=== PATIENT | male | born 1970 | race Caucasian/White ===

== ENCOUNTER 2017-05-18 05:31 | Emergency (ER) | payer BC ==
--- NOTE | 2017-05-18 05:38 | EDM.PDOC ---
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 Past medical history: As per history of present illness and as reviewed below otherwise noncontributory. Surgical history: As per history of present illness and as reviewed below otherwise noncontributory. Social history: No reported history of drug or alcohol abuse. Family history: As per history of present illness and as reviewed below otherwise noncontributory. Physical exam: HEENT: Atraumatic, normocephalic, pupils reactive, negative for conjunctival pallor or scleral icterus, mucous membranes moist, throat clear, neck supple, nontender, trachea midline. Lungs: Clear to auscultation, breath sounds equal bilaterally, chest nontender. Heart: S1S2, regular, negative for clicks, rubs, or JVD. Abdomen: Soft, nondistended, nontender. Negative for masses or hepatosplenomegaly. Negative for costovertebral tenderness. Pelvis: Stable nontender. Genitourinary: Deferred. Rectal: Deferred. Extremities: Left calf is some mild tenderness no cords CMS neurovascular is unremarkable. No significant edema Neuro: Awake, alert, oriented. Cranial nerves II through XII unremarkable. Cerebellum unremarkable. Motor and sensory unremarkable throughout. Exam nonfocal. Diagnostics: Venous Doppler left lower extremity Therapeutics: None Impression: #1 left leg pain #2 history of deep venous thrombosis/pulmonary embolus Definitive disposition and diagnosis as appropriate pending reevaluation and review of above. - Related Data Allergies Allergy/AdvReac Type Severity Reaction Status Date / Time No Known Allergies Allergy Verified 05/18/17 05:35 Home Meds: Home Meds Levothyroxine 200 mg PO DAILY 10/12/14 [History] Liothyronine [Cytomel] 12.5 mcg PO DAILY 10/12/14 [History] Lisinopril 40 mg PO DAILY 10/12/14 [History] Social & Family History - Tobacco Use Smoking Status *Q: Never Smoker Second Hand Smoke Exposure: No - Alcohol Use Days Per Week of Alcohol Use: 0 - Recreational Drug Use Recreational Drug Use: No Review of Systems - Review of Systems Review Of Systems: ROS reveals no pertinent complaints other than HPI. ED EXAM, GENERAL - Physical Exam Exam: See Below (see dictation) Course - Vital Signs Last Recorded V/S: Last Vital Signs Temp 36.2 C 05/18/17 05:41 Pulse 118 H 05/18/17 05:41 Resp 16 05/18/17 05:41 BP 155/97 H 05/18/17 05:41 Pulse Ox 97 05/18/17 05:41 - Orders/Labs/Meds Orders: Active Orders 24 hr Category Date Time Status Ribs 2V w Chest Rt [CR] Stat Exams 05/18/17 05:41 Taken Venous Doppler Lwr Ext Lt [US] Stat Exams 05/18/17 05:36 Taken CULTURE STREP A CONFIRMATION [RM] Stat Lab 05/18/17 05:45 Results STREP SCRN A RAPID W CULT CONF [RM] Stat Lab 05/18/17 05:45 Results Departure - Departure Time of Disposition: 06:20 Disposition: Home, Self-Care 01 Condition: Good Clinical Impression: Leg pain - Discharge Information Forms: ED Department Discharge Additional Instructions: The following information is given to patients seen in the emergency department who are being discharged to home. This information is to outline your options for follow-up care. We provide all patients seen in our emergency department with a follow-up referral. The need for follow-up, as well as the timing and circumstances, are variable depending upon the specifics of your emergency department visit. If you don't have a primary care physician on staff, we will provide you with a referral. We always advise you to contact your personal physician following an emergency department visit to inform them of the circumstance of the visit and for follow-up with them and/or the need for any referrals to a consulting specialist. The emergency department will also refer you to a specialist when appropriate. This referral assures that you have the opportunity for followup care with a specialist. All of these measure are taken in an effort to provide you with optimal care, which includes your followup. Under all circumstances we always encourage you to contact your private physician who remains a resource for coordinating your care. When calling for followup care, please make the office aware that this follow-up is from your recent emergency room visit. If for any reason you are refused follow-up, please contact the [facility] emergency department at and asked to speak to the emergency department charge nurse. [facility] [address] [place] [id number] Follow-up primary medical doctor and/or clinic above is discussed return as needed as discussed - My Orders Last 24 Hours: My Active Orders 05/18/17 05:36 Venous Doppler Lwr Ext Lt [US] Stat 05/18/17 05:41 Ribs 2V w Chest Rt [CR] Stat 05/18/17 05:45 CULTURE STREP A CONFIRMATION [RM] Stat STREP SCRN A RAPID W CULT CONF [RM] Stat - Assessment/Plan Last 24 Hours: My Active Orders 05/18/17 05:36 Venous Doppler Lwr Ext Lt [US] Stat 05/18/17 05:41 Ribs 2V w Chest Rt [CR] Stat 05/18/17 05:45 CULTURE STREP A CONFIRMATION [RM] Stat STREP SCRN A RAPID W CULT CONF [RM] Stat
[2017-05-18 06:48] VITALS: BP 138/91
--- NOTE | 2017-05-20 13:26 | CR ---
EXAM DATE: 05/18/17 PATIENT'S AGE: 46 Patient: LYNN BRAUN Facility: [place], [place] Site . Site : 1970 Study: XRay Chest Right RIBS [id number]/[id number] 6:02:17 AM Ordering Physician: Clair Munoz Final Report: INDICATION: INDICATION:Right rib pain for the last 5 days TECHNIQUE: Chest and right ribs 3 views. COMPARISON: None FINDINGS: Cardiovascular and mediastinum: Heart size and vasculature are normal in caliber and appearance. Mediastinum is within normal limits. Lungs and pleural spaces: Lungs are clear. No sign of infiltrate or mass. No sign of pleural effusion. No pneumothorax. Bones and soft tissues: Detailed oblique images of the right ribs demonstrate no fractures or bone lesions. IMPRESSION: Unremarkable chest and right ribs. Dictated by Radha Yeboah MD @ May 18 2017 6:04AM (Electronic Signature) Report Signed by Proxy. KAI
--- NOTE | 2017-05-20 13:28 | US ---
EXAM DATE: 05/18/17 PATIENT'S AGE: 46 Patient: LYNN BRAUN Facility: [place], [place] Site . Site : 1970 Study: US Extremity Left [id number]/9/2017 6:14:36 AM Ordering Physician: Clair Munoz Final Report: INDICATION: Left calf pain TECHNIQUE: Ultrasound venous duplex lower left extremity. Compression venous exam was performed using serrato-scale, color Doppler, and spectral Doppler analysis. COMPARISON: None FINDINGS: Sonographic imaging demonstrates the left common femoral, deep femoral, superficial femoral, popliteal, posterior tibial and greater saphenous veins to be fully compressible with normal color Doppler blood flow. IMPRESSION: Normal left lower extremity venous ultrasound, no sign of deep venous thrombosis. Dictated by Radha Yeboah MD @ May 18 2017 6:27AM (Electronic Signature) Report Signed by Proxy. KAI
== END 2017-05-18 06:35 | disposition home or self-care (01) ==
LOC: MW.ED 05:31
DX: M79.662 Pain in left lower leg (principal); Z79.899 Other long term (current) drug therapy; Z86.718 Personal history of other venous thrombosis and embolism
CPT/HCPCS: 71101-26-RT; 71101-RT; 87081; 87880; 93971-26-LT; 93971-LT; 99282; 99284-25

== ENCOUNTER 2017-05-18 11:31 | Emergency (ER) | payer BC ==
--- NOTE | 2017-05-18 11:40 | EDM.PDOC ---
ED HPI GENERAL MEDICAL PROBLEM - General Stated Complaint: LEG PAIN Time Seen by Provider: 05/18/17 11:35 - History of Present Illness INITIAL COMMENTS - FREE TEXT/NARRATIVE: HISTORY AND PHYSICAL: History of present illness: The patient is a 46-year-old male with a history of hypertension and hypothyroidism who re-presents today for reevaluation of symptoms for which she was seen in the ED at 5:30 this morning. 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 He tells me that he was only on anticoagulation for about 3-4 months and then his doctor in [place] stopped it and said that he did not need to take anymore anticoagulation therapy. Patient presented this morning complaining of left calf pain and wanted evaluation for that. On that visit he also complained of feeling like his ears were full and sneezing and feeling a pop on the right side of his chest wall. He was evaluated with a rapid strep test which was negative x-rays of the right ribs with a chest x-ray which was negative and a venous Doppler of his right leg which was completely normal. According to nursing the patient was discharged this morning without issues and after going home his subsequently called the ER stating that she was concerned about the workup and wanted reevaluation. The patient lives permanently in [place] which is where his is and she called from that location. He has currently been working here for the last 4 months. The patient does not have a provider here locally. On my evaluation here he says that he has had ear fullness and sinus drainage and fullness as well as nasal irritation with some intermittent sores for the last several weeks and he has had a dry cough but not productive of any phlegm without fevers vomiting or diarrhea. When I discussed with him the leg pain he is saying that it upper part of the back of his left calf and there is tenderness with movement of the foot in the leg but he denies any discrete injury to the area. He has no neurosensory changes in his leg and he does not think that the leg is particularly swollen just that it is painful. He has no history of arthritides or gout and his DVT history is as above. The patient is currently not short of breath or having any chest pain. Review of systems: As per history of present illness and below otherwise all systems reviewed and negative. Past medical history: As per history of present illness and as reviewed below otherwise noncontributory. Surgical history: As per history of present illness and as reviewed below otherwise noncontributory. Social history: No reported history of drug or alcohol abuse. Family history: As per history of present illness and as reviewed below otherwise noncontributory. Physical exam: General: Well-developed well-nourished man who is nontoxic and speaking clearly and easily in the ED. His vital signs have been noted by me. HEENT: Atraumatic, normocephalic, pupils reactive, negative for conjunctival pallor or scleral icterus, mucous membranes moist, throat clear, neck supple, nontender, trachea midline. He has no cervical adenopathy or nuchal rigidity. TMs are slightly dull bilaterally but there is no redness or drainage appreciated. He has no discrete sinus tenderness on palpation. The turbinates are boggy bilaterally with creation and irritation seen bilaterally and clear nasal drainage. Lungs: Clear to auscultation, breath sounds equal bilaterally, chest nontender. Heart: S1S2, regular, negative for clicks, rubs, or JVD. Abdomen: Soft, nondistended, nontender. Negative for masses or hepatosplenomegaly. NABS Pelvis: Stable nontender. Genitourinary: Deferred. Rectal: Deferred. Extremities: Atraumatic, negative for cords or calf pain. Neurovascular unremarkable. Patient has full range of motion of all of his extremities without defects or deformities. There is no pedal edema and there is actually no leg asymmetry. On palpation there is some tenderness in the superior aspect of the calf and in the popliteal fossa but it is not excessive and there is no fullness. There is no knee joint erythema or warmth or joint effusion. On my evaluation the pain appears to be very muscular as when he range of motions at the ankle and foot as well as the knee he does feel the discomfort. Patient has strong distal pulses Gildardo is pedis and posterior tip and good cap refill. Neuro: Awake, alert, oriented. Cranial nerves II through XII unremarkable. Cerebellum unremarkable. Motor and sensory unremarkable throughout. Exam nonfocal. Diagnostics: [] Therapeutics: [] Due to the patient's concern as well as his 's concern via telephone I discussed with the patient at length that as his Doppler ultrasound was negative except hours ago he would not be indicated to repeat that and that it was a complete ultrasound. He expressed some concern that they did not go down to his ankle and foot which I explained to him is not routinely performed nor is it clinically significant to do that part of the study. He feels comfortable with my explanation. I also told him that his initial DVT was due to inactivity postoperatively and he has been very active and does not have this risk factor currently. In my evaluation of him he has no other risk factors for DVTs or hypercoagulation. I told him that if he had further concerns about that he would need to address that with primary care and have that very involved testing performed. When I discussed with him his family history of blood clots it also is not immediate nuclear family and the story is somewhat flimsy for any hypercoagulable genetic problems. We discussed at length symptomatic treatment of his upper respiratory symptoms with either Claritin or Fabiana, Flonase, nasal spray and petroleum jelly in the nose which are demonstrated. I will also give him diclofenac for his leg pain. I strongly advised him to monitor his leg pain and swelling in that if anything changes in the next 24-36 hours that he can feel comfortable returning here for repeat evaluation. He feels very comfortable with these conversations and is comfortable being discharged home. Impression: Left musculoskeletal lower extremity pain, rhinitis/viral sinusitis Definitive disposition and diagnosis as appropriate pending reevaluation and review of above. Left lower leg Pain Score (Numeric/FACES): 5 - Related Data Allergies Allergy/AdvReac Type Severity Reaction Status Date / Time No Known Allergies Allergy Verified 05/18/17 11:43 Home Meds: Home Meds Levothyroxine 200 mg PO DAILY 10/12/14 [History] Liothyronine [Cytomel] 12.5 mcg PO DAILY 10/12/14 [History] Lisinopril 40 mg PO DAILY 10/12/14 [History] Past Medical History HEENT History: Reports: None Cardiovascular History: Reports: Hypertension Respiratory History: Reports: None Gastrointestinal History: Reports: None Genitourinary History: Reports: Renal Calculus Musculoskeletal History: Reports: None Neurological History: Reports: None Psychiatric History: Reports: None Hematologic History: Reports: None Dermatologic History: Reports: None - Infectious Disease History Infectious Disease History: Reports: Chicken Pox, Measles, Shingles - Past Surgical History Male Surgical History: Reports: Lithotripsy ([facility]) Endocrine Surgical History: Reports: Thyroidectomy Social & Family History - Family History Family Medical History: Noncontributory - Tobacco Use Smoking Status *Q: Never Smoker Second Hand Smoke Exposure: No - Alcohol Use Days Per Week of Alcohol Use: 0 - Recreational Drug Use Recreational Drug Use: No ED ROS GENERAL - Review of Systems Review Of Systems: ROS reveals no pertinent complaints other than HPI. ED EXAM, GENERAL - Physical Exam Exam: See Below (See dictation) Course - Vital Signs Last Recorded V/S: Last Vital Signs Temp 36.8 C 05/18/17 11:44 Pulse 118 H 05/18/17 11:44 Resp 16 05/18/17 11:44 BP 167/103 H 05/18/17 11:44 Pulse Ox 95 05/18/17 11:44 Departure - Departure Time of Disposition: 12:16 Disposition: Home, Self-Care 01 Condition: Good Clinical Impression: Musculoskeletal leg pain Qualifiers: Laterality: left Qualified Code(s): M79.605 - Pain in left leg Rhinitis Qualifiers: Rhinitis type: unspecified Chronicity: acute Qualified Code(s): J00 - Acute nasopharyngitis [common cold] - Discharge Information Referrals: PCP,Not In Area [Primary Care Provider] - Additional Instructions: The following information is given to patients seen in the emergency department who are being discharged to home. This information is to outline your options for follow-up care. We provide all patients seen in our emergency department with a follow-up referral. The need for follow-up, as well as the timing and circumstances, are variable depending upon the specifics of your emergency department visit. If you don't have a primary care physician on staff, we will provide you with a referral. We always advise you to contact your personal physician following an emergency department visit to inform them of the circumstance of the visit and for follow-up with them and/or the need for any referrals to a consulting specialist. The emergency department will also refer you to a specialist when appropriate. This referral assures that you have the opportunity for followup care with a specialist. All of these measure are taken in an effort to provide you with optimal care, which includes your followup. Under all circumstances we always encourage you to contact your private physician who remains a resource for coordinating your care. When calling for followup care, please make the office aware that this follow-up is from your recent emergency room visit. If for any reason you are refused follow-up, please contact the [facility] emergency department at and ask to speak to the emergency department charge nurse. [facility] Primary care- Internal Medicine and Family [address] [id number] Please use the diclofenac your prescribed for muscle pain and pain in your leg. Use ice to areas of discomfort after activities and please do all activities even simple ones more slowly. Please use [id number] Flonase,Sobieski nasal spray, Claritin or Fabiana, as well as apply a sling to the inside of your nose as your shown to help protect your nasal passages. Please call and follow-up in our clinic as we discussed on Saturday. Please return to the ER for any increased pain or swelling to her legs that you are concerned about for reevaluation.
[2017-05-18] MEDS ORDERED: Ketorolac 60 MG/2 ML SDV IM ONE (12:10)
[2017-05-18 12:49] VITALS: BP 130/99
== END 2017-05-18 12:45 | disposition home or self-care (01) ==
LOC: MW.ED 11:31
DX: M79.605 Pain in left leg (principal); J00 Acute nasopharyngitis [common cold]; I10 Essential (primary) hypertension; E03.9 Hypothyroidism, unspecified; Z79.899 Other long term (current) drug therapy; Z87.442 Personal history of urinary calculi; Z98.890 Other specified postprocedural states
CPT/HCPCS: 96372; 99282; J1885; 99283

== ENCOUNTER 2017-05-21 06:36 | Observation (INO) | payer BC ==
[2017-05-21] MEDS ORDERED: Sodium Chloride 0.9% 1,000 ML IV ONE (06:46)
[2017-05-21 07:24] LABS: CHLORIDE,CL 106 mmol/L (98-110); SODIUM,NA 140 mmol/L (136-146)
--- NOTE | 2017-05-21 07:28 | EDM.PDOC ---
ED HPI GENERAL MEDICAL PROBLEM - General Chief Complaint: General Stated Complaint: TIGHTNESS IN CHEST, DIZZY Time Seen by Provider: 05/21/17 07:05 - History of Present Illness INITIAL COMMENTS - FREE TEXT/NARRATIVE: HISTORY AND PHYSICAL: History of present illness: The patient is a 46-year-old male with a history of hypertension and thyroid disease status post thyroid cancer which is in remission as well as a postoperative DVT several years ago who resents again to the emergency department with complaints of feeling lightheaded chest tightness wooziness and a headache. The patient was seen here twice on May 18 for upper respiratory symptoms as well as pain in his leg and concern about a DVT. He had a Doppler ultrasound as well as a chest x-ray at that time. He re-presented because of insertions on the same day which were alleviated and he was recommended to start [id number] medications for his URI symptoms and follow-up in the clinic. He saw one of our clinic providers, , yesterday who evaluated him for his hypertension as well as his leg pain and set up an outpatient MRI and prescribed him medications for pain for his leg. The patient says he had a normal evening and slept all night and got up and was going to work today and was driving when he suddenly felt like he was having tunnel vision and felt like he might pass out. He was not dizzy or spinning. He said that after the lightheadedness started he felt tightness in his chest bilaterally and felt like he had a headache in the front of his head. He said he pulled over and he thought maybe his blood sugar was too low so he drank some chocolate milk. He says that when he was drinking the chocolate milk he felt he couldn't swallow. That symptom is not currently ongoing. When he arrived here the symptoms were improving and they're currently not ongoing. He did not have any nausea vomiting and no stomach pain. He had no neurosensory changes in his extremities. Had no neck or back pain. He currently has no chest pain headache or abdominal pain it does not feel the symptomatology. He says he might be a little bit dehydrated as he has not been drinking much water. He says he did not start the regimen we discussed on his last visit here for his upper respiratory symptoms and he still continues to have sinus congestion drainage and occasional cough. He has no new leg pain. He has had no recent trauma. Review of systems: As per history of present illness and below otherwise all systems reviewed and negative. Past medical history: As per history of present illness and as reviewed below otherwise noncontributory. Surgical history: As per history of present illness and as reviewed below otherwise noncontributory. Social history: No reported history of drug or alcohol abuse. Family history: As per history of present illness and as reviewed below otherwise noncontributory. Physical exam: General: Well-developed well-nourished mildly overweight man who is nontoxic and moves easily in the ED without distress. Vital signs of the note by me. HEENT: Atraumatic, normocephalic, pupils reactive, negative for conjunctival pallor or scleral icterus, mucous membranes tacky, throat clear, neck supple, nontender, trachea midline. Lungs: Clear to auscultation, breath sounds equal bilaterally, chest nontender. Heart: S1S2, regular rhythm and slightly tachycardic rate on my evaluation, negative for clicks, rubs, or JVD. Abdomen: Soft, nondistended, nontender. Negative for masses or hepatosplenomegaly. Negative for costovertebral tenderness. Pelvis: Stable nontender. Genitourinary: Deferred. Rectal: Deferred. Extremities: Atraumatic, negative for cords or calf pain. Neurovascular unremarkable.No pedal edema Neuro: Awake, alert, oriented. Cranial nerves II through XII unremarkable. Cerebellum unremarkable. Motor and sensory unremarkable throughout. Exam nonfocal. Diagnostics: EKG CBC CMP d-dimer INR troponin UA chest x-ray CT scan of the head orthostatic vitals TSH free T4 CTA Chest Therapeutics: IV O2 monitor IV fluids and Rocephin, heparin protocol Please note that the patient had a d-dimer performed yesterday by the provider in the clinic which was elevated and his results from today is improved but still elevated. Proceed to do a CTA of the chest Patient is aware of CT scan findings including incidental findings of his slipped Bhavin procedure. He is aware that he needs to be admitted for heparin protocol. The case was also discussed with our hospitalist Dr. Nieves at 9:30 who accepts the patient for admission. I discussed with both the hospitalist and the patient the possible need for further evaluation of a blood dyscrasia as his Doppler ultrasound was -3 days ago. He is aware of this care plan and is agreeable Impression: Bilateral acute pulmonary emboli Episode of lightheadedness, left maxillary sinusitis Incidental hiatal hernia Definitive disposition and diagnosis as appropriate pending reevaluation and review of above. - Related Data Allergies Allergy/AdvReac Type Severity Reaction Status Date / Time No Known Allergies Allergy Verified 05/21/17 06:37 Home Meds: Home Meds Levothyroxine 200 mg PO DAILY 10/12/14 [History] Liothyronine [Cytomel] 12.5 mcg PO DAILY 10/12/14 [History] Lisinopril 40 mg PO DAILY 10/12/14 [History] Past Medical History HEENT History: Reports: None Cardiovascular History: Reports: Hypertension Respiratory History: Reports: PE Gastrointestinal History: Reports: None Genitourinary History: Reports: Renal Calculus Musculoskeletal History: Reports: None Neurological History: Reports: None Psychiatric History: Reports: None Endocrine/Metabolic History: Reports: Hypothyroidism Hematologic History: Reports: None Dermatologic History: Reports: None - Infectious Disease History Infectious Disease History: Reports: Chicken Pox, Measles - Past Surgical History Male Surgical History: Reports: Lithotripsy ([facility]) Endocrine Surgical History: Reports: Thyroidectomy Social & Family History - Family History Family Medical History: Noncontributory - Tobacco Use Smoking Status *Q: Never Smoker Second Hand Smoke Exposure: No - Caffeine Use Caffeine Use: Reports: Coffee - Alcohol Use Days Per Week of Alcohol Use: 0 - Recreational Drug Use Recreational Drug Use: No ED ROS GENERAL - Review of Systems Review Of Systems: ROS reveals no pertinent complaints other than HPI. ED EXAM, GENERAL - Physical Exam Exam: See Below (See dictation) Course - Vital Signs Last Recorded V/S: Last Vital Signs Temp 36.4 C 05/21/17 09:20 Pulse 97 05/21/17 09:20 Resp 20 05/21/17 09:20 BP 116/61 05/21/17 09:20 Pulse Ox 97 05/21/17 09:20 Orthostatic Blood Pressure [ 137/89 Standing] Orthostatic Blood Pressure [ 133/85 Sitting] Orthostatic Blood Pressure [ 131/85 Supine] - Orders/Labs/Meds Orders: Active Orders 24 hr Category Date Time Status Patient Status [ADT] Stat ADT 05/21/17 09:35 Ordered Cardiac Monitoring [RC] . DIRECTED Care 05/21/17 06:44 Active EKG Documentation Completion [RC] STAT Care 05/21/17 06:44 Active Orthostatic Vital Signs [RC] ASDIRECTED Care 05/21/17 07:22 Active Pulse Oximetry [RC] ASDIRECTED Care 05/21/17 06:44 Active Ang Chest [CT] Stat Exams 05/21/17 07:30 Taken Chest 1V Frontal [CR] Stat Exams 05/21/17 06:44 Taken Head wo Cont [CT] Stat Exams 05/21/17 06:46 Taken Heparin Sodium Med 05/21/17 09:27 Once 5,000 units IVPUSH ONETIME ONE Sodium Chloride 0.9% [Normal Saline] 1,000 ml Med 05/21/17 06:46 Active IV ONETIME cefTRIAXone [Rocephin in Dextrose,Iso-Osm 1 GM/50 ML] 1 Med 05/21/17 09:27 Ordered gm Premix Bag 1 bag IV ONETIME Medication Orders Sodium Chloride (Normal Saline) 1,000 mls @ 125 mls/hr IV ONETIME ONE Stop: 05/21/17 14:45 Last Admin: 05/21/17 06:49 Dose: 125 mls/hr Labs: Laboratory Tests 05/21/17 05/21/17 05/21/17 Range/Units 06:42 06:42 06:42 WBC 5.89 (4.0-11.0) K/uL RBC 5.29 (4.50-5.90) M/uL Hgb 13.4 (13.0-17.0) g/dL Hct 43.0 (38.0-50.0) % MCV 81.3 (80.0-98.0) fL MCH 25.3 L (27.0-32.0) pg MCHC 31.2 (31.0-37.0) g/dL RDW Std Deviation 49.9 (28.0-62.0) fl RDW Coeff of Dimitris 17 H (11.0-15.0) % Plt Count 214 (150-400) K/uL MPV 9.30 (7.40-12.00) fL Neut % (Auto) 56.4 (48.0-80.0) % Lymph % (Auto) 30.4 (16.0-40.0) % [place] % (Auto) 10.5 (0.0-15.0) % Eos % (Auto) 2.2 (0.0-7.0) % Baso % (Auto) 0.5 (0.0-1.5) % Neut # (Auto) 3.3 (1.4-5.7) K/uL Lymph # (Auto) 1.8 (0.6-2.4) K/uL [place] # (Auto) 0.6 (0.0-0.8) K/uL Eos # (Auto) 0.1 (0.0-0.7) K/uL Baso # (Auto) 0.0 (0.0-0.1) K/uL Nucleated RBC % 0.0 /100WBC Nucleated RBCs # 0 K/uL INR 0.96 (0.86-1.11) D-Dimer, Quantitative 2.88 H (0.0-0.52) mg/LFEU Sodium 140 (136-146) mmol/L Potassium 4.0 (3.5-5.1) mmol/L Chloride 106 (98-110) mmol/L Carbon Dioxide 25 (21-31) mmol/L BUN 17 (6.0-23.0) mg/dL Creatinine 0.9 (0.6-1.5) mg/dL Est Cr Clr Drug Dosing 108.41 mL/min Estimated GFR (MDRD) > 60.0 ml/min Glucose 157 H (60-110) mg/dL Calcium 9.2 (8.8-10.8) mg/dL Total Bilirubin 0.3 (0.1-1.5) mg/dL AST 30 (5-40) IU/L ALT 46 (8-54) IU/L Alkaline Phosphatase 71 (40-150) Troponin I (0.0-0.29) NG/ML Total Protein 7.3 (6.0-8.0) g/dL Albumin 4.0 (3.5-5.0) g/dL Globulin 3.3 (2.0-3.5) g/dL Albumin/Globulin Ratio 1.2 L (1.3-2.8) Free T4 (0.7-1.48) ng/dL TSH 3rd Generation (0.47-5.0) uIU/mL Urine Color Urine Appearance Urine pH (5.0-8.0) Ur Specific [place] (1.001-1.035) Urine Protein (NEGATIVE) mg/dL Urine Glucose (UA) (NEGATIVE) mg/dL Urine Ketones (NEGATIVE) mg/dL Urine Occult Blood (NEGATIVE) Urine Nitrite (NEGATIVE) Urine Bilirubin (NEGATIVE) Urine Urobilinogen (<2.0) EU/dL Ur Leukocyte Esterase (NEGATIVE) Urine RBC (0-2/HPF) Urine WBC (0-5/HPF) Ur Epithelial Cells (NONE-FEW) Urine Bacteria (NEGATIVE) 05/21/17 05/21/17 05/21/17 Range/Units 06:42 06:42 08:02 WBC (4.0-11.0) K/uL RBC (4.50-5.90) M/uL Hgb (13.0-17.0) g/dL Hct (38.0-50.0) % MCV (80.0-98.0) fL MCH (27.0-32.0) pg MCHC (31.0-37.0) g/dL RDW Std Deviation (28.0-62.0) fl RDW Coeff of Dimitris (11.0-15.0) % Plt Count (150-400) K/uL MPV (7.40-12.00) fL Neut % (Auto) (48.0-80.0) % Lymph % (Auto) (16.0-40.0) % [place] % (Auto) (0.0-15.0) % Eos % (Auto) (0.0-7.0) % Baso % (Auto) (0.0-1.5) % Neut # (Auto) (1.4-5.7) K/uL Lymph # (Auto) (0.6-2.4) K/uL [place] # (Auto) (0.0-0.8) K/uL Eos # (Auto) (0.0-0.7) K/uL Baso # (Auto) (0.0-0.1) K/uL Nucleated RBC % /100WBC Nucleated RBCs # K/uL INR (0.86-1.11) D-Dimer, Quantitative (0.0-0.52) mg/LFEU Sodium (136-146) mmol/L Potassium (3.5-5.1) mmol/L Chloride (98-110) mmol/L Carbon Dioxide (21-31) mmol/L BUN (6.0-23.0) mg/dL Creatinine (0.6-1.5) mg/dL Est Cr Clr Drug Dosing mL/min Estimated GFR (MDRD) ml/min Glucose (60-110) mg/dL Calcium (8.8-10.8) mg/dL Total Bilirubin (0.1-1.5) mg/dL AST (5-40) IU/L ALT (8-54) IU/L Alkaline Phosphatase (40-150) Troponin I < 0.10 (0.0-0.29) NG/ML Total Protein (6.0-8.0) g/dL Albumin (3.5-5.0) g/dL Globulin (2.0-3.5) g/dL Albumin/Globulin Ratio (1.3-2.8) Free T4 1.05 (0.7-1.48) ng/dL TSH 3rd Generation 0.06 L (0.47-5.0) uIU/mL Urine Color YELLOW Urine Appearance CLEAR Urine pH 7.0 (5.0-8.0) Ur Specific [place] 1.010 (1.001-1.035) Urine Protein NEGATIVE (NEGATIVE) mg/dL Urine Glucose (UA) NEGATIVE (NEGATIVE) mg/dL Urine Ketones NEGATIVE (NEGATIVE) mg/dL Urine Occult Blood NEGATIVE (NEGATIVE) Urine Nitrite NEGATIVE (NEGATIVE) Urine Bilirubin NEGATIVE (NEGATIVE) Urine Urobilinogen 0.2 (<2.0) EU/dL Ur Leukocyte Esterase NEGATIVE (NEGATIVE) Urine RBC NONE SEEN (0-2/HPF) Urine WBC NONE SEEN (0-5/HPF) Ur Epithelial Cells RARE (NONE-FEW) Urine Bacteria RARE (NEGATIVE) Meds: Medications Generic Name Dose Route Start Last Admin Trade Name Freq PRN Reason Stop Dose Admin Sodium Chloride 1,000 mls @ 125 mls/hr 05/21/17 06:46 05/21/17 06:49 Normal Saline IV 05/21/17 14:45 125 mls/hr ONETIME ONE Administration Discontinued Medications Generic Name Dose Route Start Last Admin Trade Name Freq PRN Reason Stop Dose Admin Iopamidol 100 ml 05/21/17 08:14 05/21/17 08:15 Isovue Multipack-370 (76%) IVPUSH 05/21/17 08:15 100 ml ONETIME STA Administration Departure - Departure Time of Disposition: 09:38 Disposition: Refer to Observation Condition: Good Clinical Impression: Pulmonary embolism Qualifiers: Pulmonary embolism type: other Chronicity: acute Acute cor pulmonale presence: without acute cor pulmonale Qualified Code(s): I26.99 - Other pulmonary embolism without acute cor pulmonale Sinusitis Qualifiers: Sinusitis location: maxillary Chronicity: acute Recurrence: not specified as recurrent Qualified Code(s): J01.00 - Acute maxillary sinusitis, unspecified - Discharge Information Referrals: PCP,None [Primary Care Provider] - Forms: ED Department Discharge - My Orders Last 24 Hours: My Active Orders 05/21/17 07:22 Orthostatic Vital Signs [RC] ASDIRECTED 05/21/17 07:30 Ang Chest [CT] Stat 05/21/17 09:27 Heparin Sodium 5,000 units IVPUSH ONETIME ONE cefTRIAXone [Rocephin in Dextrose,Iso-Osm 1 GM/50 ML] 1 gm Premix Bag 1 bag IV ONETIME 05/21/17 09:35 Patient Status [ADT] Stat - Assessment/Plan Last 24 Hours: My Active Orders 05/21/17 07:22 Orthostatic Vital Signs [RC] ASDIRECTED 05/21/17 07:30 Ang Chest [CT] Stat 05/21/17 09:27 Heparin Sodium 5,000 units IVPUSH ONETIME ONE cefTRIAXone [Rocephin in Dextrose,Iso-Osm 1 GM/50 ML] 1 gm Premix Bag 1 bag IV ONETIME 05/21/17 09:35 Patient Status [ADT] Stat
[2017-05-21] MEDS ORDERED: Iopamidol 755 MG/ML 500 ML Multipack Bottle IVPUSH STA (08:14)
[2017-05-21] MEDS ORDERED: Lisinopril 10 MG Tab PO SCH (09:00)
[2017-05-21] MEDS ORDERED: cefTRIAXone 1 GM in Premix Bag 1 BAG IV ONE (09:27)
[2017-05-21] MEDS ORDERED: Heparin Sodium 5,000 Units/ML Vial IVPUSH ONE (09:27)
[2017-05-21] MEDS ORDERED: Heparin Sod,Pork In 0.45% Nacl 25,000 UNIT/500 ML IV.SOLN IV SCH (09:45)
[2017-05-21] MEDS ORDERED: Sodium Chloride 0.9% 10 ML Syringe FLUSH PRN (10:31)
[2017-05-21] MEDS ORDERED: Acetaminophen 325 MG Tab PO PRN (10:31)
[2017-05-21] MEDS ORDERED: Ondansetron 4 MG Tab.DIS PO PRN (10:31)
[2017-05-21] MEDS ORDERED: Sodium Chloride 0.9% 2.5 ML Syringe FLUSH PRN (10:31)
[2017-05-21] MEDS ORDERED: Temazepam 15 MG Cap PO PRN (10:31)
--- NOTE | 2017-05-21 10:32 | CT ---
EXAM DATE: 05/21/17 PATIENT'S AGE: 46 Patient: LYNN BRAUN Facility: [place], [place] Site . Site : 1970 Study: CT Head [id number]/12/2017 7:13:25 AM Ordering Physician: Doctor Neri Final Report: INDICATION: Dizziness. Leg pain. Past history of pulmonary embolus. Technique: CT head without IV contrast. Findings: Small to moderate amount of loculated fluid in the left maxillary sinus. Small lucencies in the calvarium. Moderate cavum septum pellucidum and vergae. This is a normal variant finding. No acute intracranial hemorrhage, edema, or mass effect. Mild cerebral atrophy. Minimal cerebellar atrophy. Remainder negative. Impression: 1. No acute intracranial disease. 2. Loculated fluid in the left maxillary sinus likely inflammatory. Please note that all CT scans at this facility use dose modulation, iterative reconstruction, and/or weight-based dosing when appropriate to reduce radiation dose to as low as reasonably achievable. Dictated by Nitin Osborne MD @ May 21 2017 7:22AM (Electronic Signature) Report Signed by Proxy. [facility]
--- NOTE | 2017-05-21 10:34 | CR ---
EXAM DATE: 05/21/17 PATIENT'S AGE: 46 Patient: LYNN BRAUN Facility: [place], [place] Site . Site : 1970 Study: XRay Chest [id number]/12/2017 7:14:09 AM Ordering Physician: Doctor Neri Final Report: INDICATION: Chest tightness. Technique: AP portable chest x-ray. Findings: Heart size normal. Mild elevation right hemidiaphragm. Intermediate sized hiatal hernia. Mild increased bronchovascular markings and pulmonary vascularity in the upper lungs and perihilar region could be a normal variant or related to mild pulmonary venous congestion. Chest otherwise unremarkable. Dictated by Nitin Osborne MD @ May 21 2017 7:19AM (Electronic Signature) Report Signed by Proxy. KAI
--- NOTE | 2017-05-21 10:35 | CT ---
EXAM DATE: 05/21/17 PATIENT'S AGE: 46 Patient: LYNN BRAUN Facility: [place], [place] Site . Site : 1970 Study: CT Chest Angio [id number]/12/2017 8:18:21 AM Ordering Physician: Maco Looney Final Report: INDICATION: Tightness in the chest. Lightheaded. Positive D-dimer. History of pulmonary embolus in 2009. Technique: CT pulmonary angiogram performed after IV injection of 50 mL of Isovue-370. Two attempts were made to obtain an optimal study. Findings: Mild opacity in the lungs consistent with atelectasis and fibrosis. Small calcified granuloma in the right lower lobe. Moderate amount of acute pulmonary embolus on the right primarily within the right lower lobe pulmonary arterial system. Few small acute pulmonary emboli on the left especially in the lower lobe. Overall pulmonary arterial opacification despite 2 attempts at obtaining an optimal CT pulmonary angiogram is not optimal. Small acute pulmonary emboli could be overlooked. Moderate-sized acute pulmonary embolus in the left upper lobe segmental and subsegmental pulmonary arterial system. Results called to referring physician. Small to moderate-sized hiatal hernia with some twisting of the hiatal hernia and the distal esophagus. Moderately prominent heterogeneous diffuse fatty infiltration of the liver. Remainder negative. Impression: 1. Acute bilateral pulmonary emboli as detailed above. 2. Small to moderate-sized hiatal hernia with some twisting of the distal esophagus related to the hiatal hernia. Small amount of fluid and stranding about the distal esophagus and hiatal hernia. History per her referring physician is that the patient has had a Bhavin fundoplication. This explains the swirling interested nature of the distal esophagus with regard to the hiatal hernia and stomach and indicates that the Bhavin fundoplication has slipped into the chest through the diaphragmatic hiatus. The fluid and stranding about the distal esophagus would indicate some mild edema. 3. Moderate diffuse fatty infiltration of the liver. Other findings as above. Please note that all CT scans at this facility use dose modulation, iterative reconstruction, and/or weight-based dosing when appropriate to reduce radiation dose to as low as reasonably achievable. Dictated by Nitin Osborne MD @ May 21 2017 9:11AM (Electronic Signature) Report Signed by Proxy. KAI
--- NOTE | 2017-05-21 10:35 | PCM.HP ---
H&P History of Present Illness - General Date of Service: 05/21/17 Admit Problem/Dx: Admission Diagnosis/Problem Admission Diagnosis/Problem Pulmonary embolism Source of Information: Patient History Limitations: Reports: No Limitations - History of Present Illness Initial Comments - Free Text/Narative: The patient is a 46-year-old gentleman who is presented to the emergency room multiple times for chest pain, leg pain and some dizziness. The patient also has been seen recently by his primary care physician. Patient has a history of thyroid cancer which was recently removed. The patient had a Doppler ultrasound of his lower leg which did not show any evidence of DVT. He had a CT scan conducted through the emergency department which showed multiple pulmonary emboli. This is at least the second time the patient has had difficulties with deep venous thrombosis. Patient has denied any fever or chills. The patient has had nausea and vomiting however, the patient previously has a Bhavin procedure.. He has had some dizziness associated and thought he was going to pass out at one point prior to presentation. As for testing at the clinic the patient had complete blood tests drawn for hypercoagulable workup and he was also noted to have an elevated d-dimer. The patient has been in his usual state of health up until the present time. Onset of Symptoms: Reports: Gradual Duration of Symptoms: Reports: Day(s):, Getting Worse Location: Reports: Upper Extremity, Right Quality: Reports: Pressure, Throbbing Severity: Moderate Associated Symptoms: Reports: Chest Pain, Shortness of Breath Chest Pain Score (Numeric/FACES): 5 Left Lower Leg Pain Score (Numeric/FACES): 4 - Related Data Allergies/Adverse Reactions: Allergies Allergy/AdvReac Type Severity Reaction Status Date / Time No Known Allergies Allergy Verified 05/21/17 06:37 Home Medications: Home Meds Levothyroxine 200 mg PO DAILY 10/12/14 [History] Liothyronine [Cytomel] 12.5 mcg PO DAILY 10/12/14 [History] Lisinopril 40 mg PO DAILY 10/12/14 [History] Acetaminophen [Tylenol] 650 mg PO Q4H PRN tablet 05/22/17 [Rx] Rivaroxaban [Xarelto] 15 mg PO BID #42 tablet 05/22/17 [Rx] oxyCODONE 10 mg PO Q4H PRN #45 tablet 05/22/17 [Rx] Past Medical History HEENT History: Reports: None Cardiovascular History: Reports: Blood Clots/VTE/DVT, Hypertension Respiratory History: Reports: PE Gastrointestinal History: Reports: None Genitourinary History: Reports: Renal Calculus Musculoskeletal History: Reports: None Neurological History: Reports: None Psychiatric History: Reports: None Endocrine/Metabolic History: Reports: Hypothyroidism Hematologic History: Reports: None Dermatologic History: Reports: None - Infectious Disease History Infectious Disease History: Reports: Chicken Pox, Measles - Past Surgical History Male Surgical History: Reports: Lithotripsy (ESWL) Endocrine Surgical History: Reports: Thyroidectomy Social & Family History - Family History Family Medical History: Noncontributory - Tobacco Use Smoking Status *Q: Never Smoker Second Hand Smoke Exposure: No - Caffeine Use Caffeine Use: Reports: Coffee - Alcohol Use Days Per Week of Alcohol Use: 0 - Recreational Drug Use Recreational Drug Use: No H&P Review of Systems - Review of Systems: Review Of Systems: See Below General: Reports: Weakness HEENT: Reports: No Symptoms Pulmonary: Reports: Shortness of Breath. Denies: Hemoptysis Cardiovascular: Reports: Chest Pain Gastrointestinal: Reports: Nausea, Vomiting Genitourinary: Reports: No Symptoms Musculoskeletal: Reports: Leg Pain (Right leg.) Skin: Reports: No Symptoms Psychiatric: Reports: No Symptoms Neurological: Reports: No Symptoms Hematologic/Lymphatic: Reports: Other (Prior DVT) Immunologic: Reports: No Symptoms Exam - Exam Exam: See Below - Vital Signs Vital Signs: Last Vital Signs Temp 36.4 C 05/21/17 10:32 Pulse 90 05/21/17 10:32 Resp 16 05/21/17 10:32 BP 136/90 05/21/17 10:32 Pulse Ox 97 05/21/17 10:32 Weight: 114 kg - Exam Quality Assessment: No: Supplemental Oxygen General: Alert, Oriented, Cooperative, Mild Distress HEENT: Conjunctiva Clear, EOMI, Mucosa Moist & [place], Nares Patent Neck: Supple, Trachea Midline Lungs: Clear to Auscultation, Normal Respiratory Effort Cardiovascular: Regular Rate, Regular Rhythm GI/Abdominal Exam: Normal Bowel Sounds, Soft, No Distention, No Abnormal Bruit (Male) Exam: Deferred Rectal (Males) Exam: Deferred Back Exam: Normal Inspection Extremities: No Pedal Edema, Other (Tender right lower leg) Skin: Warm, Dry Neurological: Cranial Nerves Intact Neuro Extensive - Mental Status: Alert, Oriented x3 Neuro Extensive - Motor, Sensory, Reflexes: CN II-XII Intact Psychiatric: Alert, Normal Affect, Normal Mood - Patient Data Result Diagrams: 05/21/17 06:42 05/21/17 06:42 *Q Meaningful Use (ADM) - VTE *Q VTE Criteria *Q: - Stroke *Q Stroke Criteria *Q: - AMI *Q AMI Criteria *Q: - Problem List (1) Pulmonary embolism SNOMED Code(s): 71306678, 72476590 ICD Code: I26.99 - OTHER PULMONARY EMBOLISM WITHOUT ACUTE COR PULMONALE Status: Acute Qualifiers: Pulmonary embolism type: other Chronicity: acute Acute cor pulmonale presence: without acute cor pulmonale Qualified Code(s): I26.99 - Other pulmonary embolism without acute cor pulmonale (2) Right leg DVT SNOMED Code(s): 915848444 ICD Code: I82.401 - ACUTE EMBOLISM AND THOMBOS UNSP DEEP VEINS OF R LOW EXTREM Status: Acute Priority: High Qualifiers: Affected thrombotic vein of extremity: unspecified lower extremity distal vein Chronicity: acute Qualified Code(s): I82.4Z1 - Acute embolism and thrombosis of unspecified deep veins of right distal lower extremity Problem List Initiated/Reviewed/Updated: Yes Orders Last 24hrs: Active Orders 24 hr Category Date Time Status Patient Status [ADT] Routine ADT 05/21/17 10:31 Ordered Cardiac Monitoring [RC] CONTINUOUS Care 05/21/17 10:32 Ordered Oxygen Therapy [RC] PRN Care 05/21/17 10:31 Ordered Up ad Carole [RC] ASDIRECTED Care 05/21/17 10:31 Ordered VTE/DVT Education [RC] PER UNIT ROUTINE Care 05/21/17 10:31 Ordered Vaccines to be Administered [RC] PER UNIT ROUTINE Care 05/21/17 10:34 Ordered Vital Signs [RC] Q4H Care 05/21/17 10:31 Ordered Regular Diet [DIET] Diet 05/21/17 Lunch Ordered Acetaminophen [Tylenol] Med 05/21/17 10:31 Ordered 650 mg PO Q4H PRN Heparin Sod,Pork In 0.45% Nacl [Heparin-1/2Ns 25,000 Med 05/21/17 09:45 Active Units/500] 25,000 unit in 500 ml IV TITRATE Levothyroxine Med 05/22/17 09:00 Ordered 200 mg PO DAILY Liothyronine [Cytomel] Med 05/22/17 09:00 Ordered 12.5 mcg PO DAILY Lisinopril Med 05/22/17 09:00 Ordered 40 mg PO DAILY Morphine Med 05/21/17 10:31 Ordered 2 mg IVPUSH Q2H PRN Ondansetron [Zofran ODT] Med 05/21/17 10:31 Ordered 4 mg PO Q6H PRN Sodium Chloride 0.9% [Saline Flush] Med 05/21/17 10:31 Ordered 10 ml FLUSH ASDIRECTED PRN Sodium Chloride 0.9% [Saline Flush] Med 05/21/17 10:31 Ordered 2.5 ml FLUSH ASDIRECTED PRN Temazepam [Restoril] Med 05/21/17 10:31 Ordered 15 mg PO BEDTIME PRN oxyCODONE Med 05/21/17 10:31 Ordered 5 mg PO Q4H PRN GM Immunization Reflex [OM.PC] Click To Edit Oth 05/21/17 10:31 Ordered Saline Lock Insert [OM.PC] Routine Oth 05/21/17 10:31 Ordered Resuscitation Status Routine Resus Stat 05/21/17 10:31 Ordered Medication Orders Sodium Chloride (Normal Saline) 1,000 mls @ 125 mls/hr IV ONETIME ONE Stop: 05/21/17 14:45 Last Admin: 05/21/17 06:49 Dose: 125 mls/hr Heparin Sod,Pork In 0.45% Nacl (Heparin-1/2ns 25,000 Units/500) 25,000 unit in 500 mls @ 0 mls/hr IV TITRATE MART; 18 UNITS/KG/HR PRN Reason: Protocol Assessment/Plan Comment:: The patient is a 46-year-old gentleman who is been admitted to observation secondary to acute pulmonary embolism. It is suspected that the patient's right leg pain may be due to a DVT however, this did not show up on ultrasound. An MRI has been ordered. The patient does far as been kept on treatment dose of Lovenox at 1 mg/kg twice a day. The patient will also be kept on fluid support normal saline at 50 mL per hour. His pain will be controlled with the use of oxycodone as necessary for the pain. I suspect that the patient is doing well and the the patient is having no further problems with his pain with this as well controlled that he be likely appropriate for discharge in the morning as necessary.
[2017-05-21] MEDS ORDERED: LIOTHYRONINE 12.5 MCG PO SCH (12:26)
[2017-05-21] MEDS: oxyCODONE 5 MG Tab PO PRN ×3 (12:34→23:32)
[2017-05-21] MEDS: Lisinopril 10 MG Tab PO SCH ×2 (12:34→20:22)
[2017-05-21] MEDS: Levothyroxine 100 MCG Tab PO SCH (12:36)
[2017-05-21] MEDS: Enoxaparin 150 MG/1 ML Syringe SUBCUT SCH ×2 (14:15→22:54)
[2017-05-21] MEDS ORDERED: Gadobenate Dimeglumine 529 MG/ML 20 ML SDV IVPUSH STA (18:26)
[2017-05-21] MEDS: Morphine 2 MG/ML Syringe IVPUSH PRN ×2 (19:07→22:56)
[2017-05-22] MEDS: Morphine 2 MG/ML Syringe IVPUSH PRN ×2 (02:35→06:52)
[2017-05-22] MEDS: oxyCODONE 5 MG Tab PO PRN (03:40)
[2017-05-22] MEDS: Levothyroxine 100 MCG Tab PO SCH (06:48)
[2017-05-22] MEDS ORDERED: oxyCODONE 5 MG Tab PO PRN (08:50)
[2017-05-22] MEDS ORDERED: Rivaroxaban 15 MG Tab PO SCH (09:00)
[2017-05-22] MEDS: Lisinopril 10 MG Tab PO SCH (09:27)
[2017-05-22 09:30] VITALS: BP 141/77
--- NOTE | 2017-05-22 10:06 | MR ---
EXAM DATE: 05/21/17 PATIENT'S AGE: 46 Patient: LYNN BRAUN Facility: [place], [place] Site . Site : [id number] Study: MRI Extremity Left [id number]/12/2017 7:10:29 PM Ordering Physician: Lizbeth Tidwell Final Report: HISTORY: Severe left lower leg pain. Clinical concern for possible DVT. TECHNIQUE: Axial, sagittal and coronal T1, T2 fat-sat and postcontrast T1 weighted images with fat saturation were obtained of the left leg. COMPARISON: Ultrasound 05/18/2017. FINDINGS: Osseous structures: There is no tibial or fibular fracture or pathologic marrow replacement process. No significant marrow edema. - Soft tissues: There is interstitial muscle edema like signal involving the soleus musculature. Dilatation of the soleus and peroneal veins with absent internal enhancement is noted on postcontrast images indicating DVT. Areas of subcutaneous edema like signal. No soft tissue mass or fluid collection. IMPRESSION: 1. Dilatation of the soleus intramuscular veins and peroneal veins with absent internal enhancement following contrast administration compatible with DVT. 2. No fracture or tibial or fibular marrow edema. 3. No mass or fluid collection. - Report called to Dr. Nieves 05/21/2017 at 20:00 hours. Dictated by John Espinal MD @ 05/21/2017 7:56:06 PM Dictated by: John Espinal MD @ 05/21/2017 20:01:13 (Electronic Signature) Report Signed by Proxy. [facility] CENTERLisa
--- NOTE | 2017-05-22 10:52 | PCM.DCSUM1 ---
Discharge Summary - Hospital Course Brief History: This 46-year-old male with pmh of HTN and thyroid disease status post thyroid cancer which is in remission as well as a postoperative DVT several years ago presented to the ED with complaints of feeling lightheaded chest tightness wooziness and a headache. He was seen twice on May 18 for upper respiratory symptoms as well as pain in his leg and concern about a DVT. Doppler ultrasound as well as a chest x-ray were negative at that time. He saw one of our clinic providers, , 05/19 who evaluated him for his hypertension as well as his leg pain and set up an outpatient MRI and prescribed him medications for pain for his leg. The patient says he had a normal evening and slept all night and got up and was going to work today and was driving when he suddenly felt like he was having tunnel vision and felt like he might pass out. He was not dizzy or spinning. He said that after the lightheadedness started he felt tightness in his chest bilaterally and felt like he had a headache in the front of his head. He said he pulled over and he thought maybe his blood sugar was too low so he drank some chocolate milk. He says that when he was drinking the chocolate milk he felt he couldn't swallow. He denied nausea vomiting and abdominal pain. Denied neck or back pain. Reports no chest pain headache. L leg pain continued, no neurologic symptoms noted. He denied any recent trauma. In the ED CT angio of chest revealed acute bilateral emboli. D dimer elevated at 2.88. He was admitted observation for bilateral PE and started on anticoagulation - Discharge Data Discharge Date: 05/22/17 Discharge Disposition: Home, Self-Care 01 Condition: Good - Patient Instructions Diet: Regular Diet as Tolerated Activity: No Strenuous Activities Driving: Do Not Drive (No driving while on narcotics.) Showering/Bathing: January Shower Notify Provider of: Fever, Increased Pain, Swelling and Redness, Drainage, Nausea and/or Vomiting - Discharge Plan Prescriptions/Med Rec: oxyCODONE 10 mg PO Q4H PRN #45 tablet PRN Reason: Pain Rivaroxaban [Xarelto] 15 mg PO BID #42 tablet Home Medications: Home Meds Levothyroxine 200 mg PO DAILY 10/12/14 [History] Liothyronine [Cytomel] 12.5 mcg PO DAILY 10/12/14 [History] Lisinopril 40 mg PO DAILY 10/12/14 [History] Acetaminophen [Tylenol] 650 mg PO Q4H PRN tablet 05/22/17 [Rx] Rivaroxaban [Xarelto] 15 mg PO BID #42 tablet 05/22/17 [Rx] oxyCODONE 10 mg PO Q4H PRN #45 tablet 05/22/17 [Rx] Patient Handouts: Rivaroxaban oral tablets, Oxycodone tablets or capsules, Pulmonary Embolism Referrals: [facility] [Outside] Timo Roth MD [Physician] - 05/30/17 8:30 am - Discharge Summary/Plan Comment DC Time >30 min.: No Discharge Summary/Plan Comment: Discharge Diagnoses: Bilateral PE HTN Hypothyroidism secondary to thyroid ca, remission Kalen was admitted and monitored overnight. He was treated with full dose Lovenox. VS have remained stable. He is on RA sating well. MRI of left leg was completed which revealed dilatation of the soleus intramuscular veins and peroneal veins, compatible with DVT. He reports pain is not controlled with Oxycodone 5 mg. We did try 10 mg which he felt good relief with and was eager for discharge home. He does have insurance and after discussion of treatment options he and his would like to try a newer agent. He will be placed on Xarelto 15 mg BID for 21 days then change to 20 mg daily for life time. He was given prescription for 21 days. Coagulopathy workup in progress with PCP. I will discharge him home today with Xarelto and Oxycodone. He is to remain off work until cleared by PCP and to follow up with PCP early next week. He is to return to the ED or clinic if concerns should arise. 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 - General Info Date of Service: 05/22/17 Admission Dx/Problem (Free Text: Admission Diagnosis/Problem Admission Diagnosis/Problem Pulmonary embolism Subjective Update: Reports pain better controlled with 10 mg and eager for discharge home. Denies SOB, chest pressure intermittent and with deep breathing. L leg pain tolerable, no significant swelling or erythema noted Functional Status: Reports: Pain Controlled, Tolerating Diet, Ambulating, Urinating - Review of Systems General: Reports: No Symptoms. Denies: Fever Pulmonary: Reports: No Symptoms, Pleuritic Chest Pain. Denies: Shortness of Breath, Cough, Sputum Cardiovascular: Reports: No Symptoms. Denies: Chest Pain, Edema Gastrointestinal: Reports: No Symptoms Genitourinary: Reports: No Symptoms Musculoskeletal: Reports: Leg Pain (L tenderness) Skin: Reports: No Symptoms Neurological: Reports: No Symptoms Psychiatric: Reports: No Symptoms - Patient Data Vitals - Most Recent: Last Vital Signs Temp 97.8 F 05/22/17 08:00 Pulse 84 05/22/17 08:00 Resp 20 05/22/17 08:00 BP 141/77 H 05/22/17 09:27 Pulse Ox 94 L 05/22/17 08:00 Weight - Most Recent: 114 kg I&O - Last 24 hours: Intake & Output 05/21/17 05/22/17 05/22/17 22:59 06:59 14:59 Intake Total 1500 1550 Output Total 1275 Balance 1500 275 Lab Results - Last 24 hrs: Laboratory Results - last 24 hr 05/21/17 Range/Units 11:37 APTT 43.8 H (18.6-31.3) SEC Med Orders - Current: Current Medications Acetaminophen (Tylenol) 650 mg PO Q4H PRN PRN Reason: Pain (Mild 1-3)/fever Levothyroxine Sodium (Synthroid) 200 mcg PO ACBREAKFAST [facility] Last Admin: 05/22/17 06:48 Dose: 200 mcg Lisinopril (Prinivil) 20 mg PO BID [facility] Last Admin: 05/22/17 09:27 Dose: 20 mg Ondansetron HCl (Zofran Odt) 4 mg PO Q6H PRN PRN Reason: nausea, able to take PO Oxycodone HCl (Oxycodone) 10 mg PO Q4H PRN PRN Reason: Pain (moderate 4-6) Last Admin: 05/22/17 09:27 Dose: 10 mg Liothyronine 12.5 (Mcg Tab) 1 each PO DAILY [facility] Last Admin: 05/22/17 09:30 Dose: Not Given Rivaroxaban (Xarelto) 15 mg PO BID [facility] Last Admin: 05/22/17 09:27 Dose: 15 mg Sodium Chloride (Saline Flush) 10 ml FLUSH ASDIRECTED PRN PRN Reason: Keep Vein Open Sodium Chloride (Saline Flush) 2.5 ml FLUSH ASDIRECTED PRN PRN Reason: Keep Vein Open Temazepam (Restoril) 15 mg PO BEDTIME PRN PRN Reason: Sleep Discontinued Medications Enoxaparin Sodium (Lovenox) 110 mg SUBCUT Q12HR MART Last Admin: 05/21/17 22:54 Dose: 110 mg Gadobenate Dimeglumine (Multihance) 20 ml IVPUSH ONETIME STA Stop: 05/21/17 18:27 Last Admin: 05/21/17 18:27 Dose: 20 ml Heparin Sodium (Porcine) (Heparin Sodium) 5,000 units IVPUSH ONETIME ONE Stop: 05/21/17 09:28 Last Admin: 05/21/17 10:29 Dose: 5,000 units Sodium Chloride (Normal Saline) 1,000 mls @ 125 mls/hr IV ONETIME ONE Stop: 05/21/17 14:45 Last Admin: 05/21/17 06:49 Dose: 125 mls/hr Ceftriaxone Sodium/Dextrose 1 (gm/ Premix) 50 mls @ 100 mls/hr IV ONETIME ONE Stop: 05/21/17 09:56 Last Admin: 05/21/17 09:46 Dose: 100 mls/hr Heparin Sod,Pork In 0.45% Nacl (Heparin-1/2ns 25,000 Units/500) 25,000 unit in 500 mls @ 0 mls/hr IV TITRATE MART; 18 UNITS/KG/HR PRN Reason: Protocol Iopamidol (Isovue Multipack-370 (76%)) 100 ml IVPUSH ONETIME STA Stop: 05/21/17 08:15 Last Admin: 05/21/17 08:15 Dose: 100 ml Liothyronine Sodium (Cytomel) 12.5 mcg PO DAILY [facility] Last Admin: 05/21/17 13:44 Dose: Not Given Lisinopril (Prinivil) 40 mg PO DAILY [facility] Last Admin: 05/21/17 13:44 Dose: Not Given Morphine Sulfate (Morphine) 2 mg IVPUSH Q2H PRN PRN Reason: Pain (severe 7-10) Stop: 05/22/17 10:33 Last Admin: 05/22/17 06:52 Dose: 2 mg Oxycodone HCl (Oxycodone) 5 mg PO Q4H PRN PRN Reason: Pain (moderate 4-6) Last Admin: 05/22/17 03:40 Dose: 5 mg - Exam Quality Assessment: Denies: Supplemental Oxygen General: Reports: Alert, Oriented, Cooperative, No Acute Distress Neck: Reports: Supple Lungs: Reports: Clear to Auscultation, Normal Respiratory Effort Cardiovascular: Reports: Regular Rate, Regular Rhythm GI/Abdominal Exam: Normal Bowel Sounds, Soft, Non-Tender, No Organomegaly, No Distention, No Abnormal Bruit, No Mass, Pelvis Stable Extremities: Normal Inspection, Normal Range of Motion, No Pedal Edema, Normal Capillary Refill, Other (tenderness to l calf and up medial thigh.) Neurological: Reports: No New Focal Deficit Psy/Mental Status: Reports: Alert, Normal Affect, Normal Mood *Q Meaningful Use (DIS) - VTE *Q VTE Criteria *Q: - Stroke *Q Stroke Criteria *Q: - AMI *Q AMI Criteria *Q:
== END 2017-05-22 11:55 | disposition home or self-care (01) ==
LOC: MW.ED 06:36 → MW.MS 09:35
PROVIDERS: ADMIT Internal Medicine; ATTEND Internal Medicine
DX: I26.99 Other pulmonary embolism without acute cor pulmonale (principal); I82.4Z1 Acute embolism and thrombosis of unspecified deep veins of right distal lower extremity; E89.0 Postprocedural hypothyroidism; Z85.850 Personal history of malignant neoplasm of thyroid; Z87.442 Personal history of urinary calculi; Z79.899 Other long term (current) drug therapy; Z98.890 Other specified postprocedural states
CPT/HCPCS: 36415; 70450; 71010; 71275; 73720; 80053; 81001; 84439; 84443; 84484; 85025; 85379; 85610; 85730; 93005; 96361; 96365; 96372; 96375; 96376; 99285; A9270; A9577; G0378; J0696; J1644; J1650; J2270; J7040; Q9967; 99283

== ENCOUNTER 2021-01-23 11:51 | Emergency (ER) | payer BC ==
--- NOTE | 2021-01-23 13:47 | EDM.PDOC ---
ED HPI GENERAL MEDICAL PROBLEM - General Chief Complaint: ENT Problem Stated Complaint: NOSEBLEED Time Seen by Provider: 01/23/21 12:50 - History of Present Illness INITIAL COMMENTS - FREE TEXT/NARRATIVE: CHIEF COMPLAINT(S): Epistaxis HISTORY OF PRESENT ILLNESS: This is a 50-year-old man in with a past medical history of hypertension and hypothyroidism who comes to the emergency department with a chief complaint of epistaxis. The patient was sent in from clinic due to continued epistaxis. The patient states that he has had multiple episodes of nosebleeds recently. He states that he does have some runny nose. He denies any seasonal allergies. He denies any picking of the nose. He denies any blurry vision, numbness, tingling, weakness. He states that he has not been taking his blood pressure medications. He states that he is experiencing a mild headache without any associated symptoms. He rates his pain as 5 out of 10. He states that he applied pressure but it did not seem to stop and so he went to the clinic and they sent him here. REVIEW OF SYSTEMS: Constitutional: Denies fever, chills. Eyes: Denies eye pain Ears, Nose, Mouth, & Throat: Positive for epistaxis denies earache Cardiovascular: Denies chest pain Respiratory: Denies shortness of breath Gastrointestinal: Denies Nausea, vomiting, diarrhea, hematochezia. Genitourinary: Denies hematuria Skin:Denies a rash MSK: Denies joint pain Neurological: Positive for headache. Denies blurred vision, loss of vision, double vision, numbness, tingling, weakness psychiatric: Denies depression PAST MEDICAL HISTORY: As per history of present illness and as reviewed below otherwise noncontributory. SURGICAL HISTORY: As per history of present illness and as reviewed below otherwise noncontributory. SOCIAL HISTORY: As per history of present illness and as reviewed below otherwise noncontributory. FAMILY HISTORY: As per history of present illness and as reviewed below otherwise noncontributory. EXAMINATION OF ORGAN SYSTEMS/BODY AREAS: Constitutional: Blood pressure was 182/117, heart rate 111, respiratory rate 16 with an oxygen saturation 96% on room air. Temperature 37.2 General: Overall well-appearing man who is in no acute distress Psychiatric: Appropriate mood and affect. Eyes: No scleral icterus or conjunctival erythema ENMT: Moist mucous membranes. No pharyngeal erythema mild nasal turbinate erythema with out any active bleeding. Posterior pharynx with no active bleeding. Cardiovascular: Regular, rate, and rhythm. No gallops, murmurs, or rubs. Bilateral upper extremity pulses symmetric and intact. No peripheral edema. No JVD. Respiratory: Lungs clear to auscultation bilaterally. No wheezes, rales, or rhonchi. Gastrointestinal: Soft, non-tender, non-distended. Normoactive bowel sounds Genitourinary: No suprapubic tenderness Musculoskeletal: Normal range of motion. Skin: No lesions or abrasions. Neurological: Alert, GCS 15 strength and sensation grossly intact in upper and lower extremities bilaterally. Gait is normal MEDICAL DECISION MAKING AND COURSE IN THE ED WITH INTERPRETATION/REVIEW OF DIAGNOSTIC STUDIES: This is a 50-year-old man with a past medical history of hypertension who comes to the emergency department with recurrent epistaxis sent in from clinic for continued bleeding. On evaluation by the time the patient got to the emergency department his epistaxis had resolved. I did discuss that I would like to monitor him in the emergency department for rebleed. I did discuss treatment of epistaxis and preventative measures. Patient was observed in the emergency department without recurrence of his epistaxis. I did discuss with him that this is also likely due to his hypertension being uncontrolled. I encouraged the patient to take his medications as prescribed. He is to return to the emergency department for any new or worsening symptoms. DISPOSITION: The patient was discharged home in stable condition. The patient will follow up with primary care physician within 3 to 5 days CONDITION: Fair PROCEDURES: None FINAL IMPRESSION(S)/DIAGNOSES: 1. Acute epistaxis likely secondary to uncontrolled hypertension Fabián Escalante M.D. head Pain Score (Numeric/FACES): 4 - Related Data Allergies Allergy/AdvReac Type Severity Reaction Status Date / Time No Known Allergies Allergy Verified 01/23/21 12:43 Home Meds: Home Meds Levothyroxine 200 mcg PO DAILY 10/12/14 [History] Liothyronine [Cytomel] 12.5 mcg PO DAILY 10/12/14 [History] Acetaminophen [Tylenol] 650 mg PO Q4H PRN tablet 05/22/17 [Rx] Testosterone 01/23/21 [History] amLODIPine [Norvasc] PO DAILY 01/23/21 [History] Past Medical History HEENT History: Reports: None Cardiovascular History: Reports: Blood Clots/VTE/DVT, Hypertension Respiratory History: Reports: PE Gastrointestinal History: Reports: None Genitourinary History: Reports: Renal Calculus Musculoskeletal History: Reports: None Neurological History: Reports: None Psychiatric History: Reports: None Endocrine/Metabolic History: Reports: Hypothyroidism Hematologic History: Reports: None Dermatologic History: Reports: None - Infectious Disease History Infectious Disease History: Reports: Chicken Pox, Measles - Past Surgical History Cardiovascular Surgical History: Reports: None GI Surgical History: Reports: Bhavin Fundoplication Other GI Surgeries/Procedures: sx in 2009 Male Surgical History: Reports: Lithotripsy ([facility]) Endocrine Surgical History: Reports: Thyroidectomy Other Endocrine Surgeries/Procedures: Thyroid CA Social & Family History - Family History Family Medical History: No Pertinent Family History - Tobacco Use Tobacco Use Status *Q: Never Tobacco User - Caffeine Use Caffeine Use: Reports: Coffee - Recreational Drug Use Recreational Drug Use: No ED ROS GENERAL - Review of Systems Review Of Systems: See Below ED EXAM, GENERAL - Physical Exam Exam: See Below Course - Vital Signs Last Recorded V/S: Last Vital Signs Temp 36.8 C 01/23/21 13:55 Pulse 107 H 01/23/21 13:55 Resp 18 01/23/21 13:55 BP 164/102 H 01/23/21 13:55 Pulse Ox 94 L 01/23/21 13:55 Departure - Departure Time of Disposition: 13:46 Disposition: Home, Self-Care 01 Condition: Fair Clinical Impression: Epistaxis, Hypertension - Discharge Information *PRESCRIPTION DRUG MONITORING PROGRAM REVIEWED*: No *COPY OF PRESCRIPTION DRUG MONITORING REPORT IN PATIENT BLANE: No Instructions: Nosebleed, [id number] Referrals: PCP,None [Primary Care Provider] - Forms: ED Department Discharge Additional Instructions: Your evaluated today on an emergent basis. At this time your bloody nose did stop. I do recommend that you use a humidifier at night, use [employer] [place] which can be bought [id number] to keep your nasal passages moist. Remember to not pick your nose. In addition your blood pressure is likely contributing to these bloody noses. I do recommend that she continue to use your home medication for your blood pressure. Please follow-up with your primary care physician within 3 to 5 days. [facility] - Primary Care [address] [place] [id number] [facility] [address] [place] [id number] The patient is informed of any results of their evaluation and diagnostic workup and all questions are answered. They are given discharge instructions and return precautions. The patient is stable for discharge. The patient states they understand and agree with the plan and that they will return if their symptoms get worse or if they have any new concerns. The following information is given to patients seen in the emergency department who are being discharged to home. This information is to outline your options for follow-up care. We provide all patients seen in our emergency department with a follow-up referral. The need for follow-up, as well as the timing and circumstances, are variable depending upon the specifics of your emergency department visit. If you don't have a primary care physician on staff, we will provide you with a referral. We always advise you to contact your personal physician following an emergency department visit to inform them of the circumstance of the visit and for follow-up with them and/or the need for any referrals to a consulting specialist. The emergency department will also refer you to a specialist when appropriate. This referral assures that you have the opportunity for follow-up care with a specialist. All of these measure are taken in an effort to provide you with optimal care, which includes your follow-up. Under all circumstances we always encourage you to contact your private physician who remains a resource for coordinating your care. When calling for follow-up care, please make the office aware that this follow-up is from your recent emergency room visit. If for any reason you are refused follow-up, please contact the [facility] at and asked to speak to the emergency department charge nurse. Sepsis Event Note (ED) - Evaluation Sepsis Screening Result: No Definite Risk
[2021-01-23 13:57] VITALS: BP 164/102; PULSE 107
== END 2021-01-23 13:55 | disposition home or self-care (01) ==
LOC: MW.ED 11:51
DX: R04.0 Epistaxis (principal); I10 Essential (primary) hypertension; E03.9 Hypothyroidism, unspecified; Z79.899 Other long term (current) drug therapy
CPT/HCPCS: 99282; 99283